=== PATIENT | male | born 1990 | race African-American/Black ===

== ENCOUNTER 2021-04-17 21:21 | Emergency (ER) | payer OTHER ==
[~2021-04-17] VITALS: Ht 152.4 cm; Wt 83.9 kg
[2021-04-17] MEDS ORDERED: ALBUTEROL (22:09)
[2021-04-17] MEDS ORDERED: QUVAR (22:10)
[2021-04-18] MEDS ORDERED: ULTRAM50 MG PO (02:46)
[2021-04-18] MEDS ORDERED: PEPCID AC20 MG PO (02:46)
[2021-04-18] MEDS ORDERED: INTESTINEX680 M1 PO (02:46)
[2021-04-18] MEDS ORDERED: SURFAK240 M1 PO (02:53)
[2021-04-18] MEDS ORDERED: MINERAL OIL EX473 ML BC (02:53)
== END 2021-04-18 03:05 | disposition home or self-care (01) ==
LOC: ER 21:21
DX: K59.00 Constipation, unspecified (principal); R10.9 Unspecified abdominal pain